=== PATIENT | male | born 1965 | race Caucasian/White ===

== ENCOUNTER 2017-11-01 14:39 | Emergency (ER) | payer SELFPAY ==
[2017-11-01 14:55] VITALS: RESP 16; TEMP 97.5
--- NOTE | 2017-11-01 15:39 | EDPHY ---
H & P Time Seen by Provider: 11/01/17 14:56 HPI/ROS: HPI High blood pressure. Sent from surgery Center. 52-year-old male with his . Sent from the surgery Center. This morning he underwent right shoulder surgery by Dr. aJffe. His anesthesiologist called the emergency department and spoke with 1 of our physicians explaining that he was concerned that the patient's blood pressure was elevated after recovery from anesthesia. He was sent here for evaluation. The patient denies any chest pain, no shortness of breath, no changes in vision, no headache or other complaints. Blood pressure in triage is 171/112. He tells me that he has a history of anxiety with associated hypertension. He was on a antihypertensive medication for years prescribed to him by his primary care physician Dr. Markham. However, Dr. Markham took him off this medication sometime ago secondary to normalizing of his blood pressure. ROS: Constitutional: No fever, no chills. No weakness. Eyes: No changes in vision. Respiratory: No cough. No shortness of breath. Cardiac: No chest pain, no palpitations. Gastrointestinal: No abdominal pain, no vomiting, no diarrhea. Genitourinary: No hematuria. No difficulty urinating. Neurological: No headache. No focal weakness or altered sensation. Past medical history: Anxiety. As above. Social history: Nonsmoker. Denies alcohol. Here with his . Physical Exam: General Appearance: Alert, no distress. Large man. This patient is responding to questions appropriately and in full sentences. This patient appears well- hydrated and well-nourished. Eyes: Pupils equal and round no pallor or injection. No lid edema, erythema or injection. Respiratory: There are no retractions, lungs are clear to auscultation with good air movement bilaterally. Cardiovascular: Regular rate and rhythm. No murmur. Neurological: Motor sensory function is grossly intact. Cranial nerves are normal. Gait is normal. Skin: Warm and dry, no rashes. Musculoskeletal: Neck is supple and nontender. Right shoulder is in a abduct did brace and sling. Psychiatric: No agitation. No depression. Database: EKG: Imaging: Procedures: Emergency department course: Triage vital signs reviewed. I initially discussed starting the patient on lisinopril here but we do not have any blood work to verify renal function. He then told me that he does have a prescription for a blood pressure medication on file through his primary care physician's office. Plan will be for him to call his primary care physician and he can be restarted on this medication. He will then follow up with his primary care physician tomorrow for re-evaluation. Return to emergency department precautions were thoroughly discussed with him. All of his questions were answered. He was discharged in good condition. Differential Diagnosis: The differential diagnosis on this patient includes but is not limited to anxiety, hypertension. Hypertensive emergency unlikely. This represents a partial list of diagnoses considered. These considerations are based on history , physical exam, past history, reassessment and diagnostic testing. Smoking Status: Former smoker Constitutional: Initial Vital Signs Temperature (C) 36.4 C 11/01/17 14:39 Heart Rate 68 11/01/17 14:39 Respiratory Rate 16 11/01/17 14:39 Blood Pressure 171/112 H 11/01/17 14:39 O2 Sat (%) 95 11/01/17 14:39 O2 Delivery Mode Room Air Allergies/Adverse Reactions: No Known Allergies Allergy (Verified 11/01/17 14:49) Home Medications: Medication Instructions Recorded Ambien 11/01/17 Departure - Departure Disposition: Home, Routine, Self-Care Clinical Impression: Anxiety, Hypertension Condition: Good Instructions: Hypertension (ED) Additional Instructions: Read and follow provided instructions. Follow-up with your primary care physician by phone on discharge from the emergency department to restart your blood pressure medication that you were taking previously. Follow-up with your primary care physician tomorrow as discussed. Explain that this is for an emergency department follow-up to evaluate your blood pressure. Take medication as prescribed only. Return to the emergency department for chest pain, headache, shortness of breath or other serious concerns. Referrals: CARLOS MARKHAM [Primary Care Provider] - As per Instructions
[2017-11-01 16:00] VITALS: BP 176/122; PULSE 73; O2SAT 94
== END 2017-11-01 15:58 | disposition home or self-care (01) ==
LOC: EDUNIT#
DX: I10 Essential (primary) hypertension (principal); F41.9 Anxiety disorder, unspecified; Z87.891 Personal history of nicotine dependence